=== PATIENT | female | born 1990 | race Two or more races ===

== ENCOUNTER 2021-11-27 13:45 | Outpatient (CLI) | payer BC, SELFPAY ==
--- NOTE | 2021-11-27 14:00 | CRLHL7_ITS ---
For Patients: As a result of the Century Cures Act, medical imaging exams and procedure reports are released immediately into your electronic medical record. You may view this report before your referring provider. If you have questions, please contact your health care provider. INDICATION: First trimester scan, establish dates. COMPARISON: None. TECHNIQUE: Real-time allred-scale imaging of the pelvis was performed. FINDINGS: Sonographic imaging demonstrates a single living intrauterine gestation. The embryo demonstrates a regular cardiac rate measuring 161 beats per minute. The embryo`s crown-rump length measurement of 4.5 cm corresponds to a gestational age of 11 weeks 2 days with a sonographic due date of 06/16/2022. There is a normal-appearing yolk sac. There are no gross abnormalities noted within the embryo at this early state of development. The gestational sac has a normal appearance. There is a 1.6 x 0.4 x 1.0 cm perigestational hemorrhage. The amount of fluid within the sac appears appropriate for gestational age. The cervix is closed. The myometrium appears normal. The ovaries are of normal size. Probable corpus luteal cyst right ovary. There are no suspicious fluid collections noted in the cul-de-sac. IMPRESSION: A single living intrauterine with sonographic gestational age 11 weeks 2 days and sonographic due date of 06/16/2022. Small inferior subchorionic hemorrhage measuring 1.6 x 0.4 x 1.0 cm. Dictated by Ivan Han MD @ 11/27/2021 3:06:37 PM (Electronically Signed)
== END 2021-11-27 13:46 | disposition home or self-care (01) ==
LOC: US 13:46
PROVIDERS: Visit Provider Physician Assistant
DX: Z34.91 Encounter for supervision of normal pregnancy, unspecified, first trimester (principal)
CPT/HCPCS: 76801; 86592; 86703; 86762; 86787; 86803; 86850; 86900; 86901; 87086; 87340; 87491; 87591; 88175

== ENCOUNTER 2022-01-27 15:50 | Outpatient (CLI) | payer BC, SELFPAY ==
--- NOTE | 2022-01-27 16:00 | CRLHL7_ITS ---
For Patients: As a result of the Century Cures Act, medical imaging exams and procedure reports are released immediately into your electronic medical record. You may view this report before your referring provider. If you have questions, please contact your health care provider. INDICATION: Evaluate anatomy. COMPARISON: 11/27/2021 TECHNIQUE: Real time allred scale imaging of the fetus was performed as well as color Doppler analysis of the umbilical vessels. FINDINGS: Sonographic imaging demonstrates a single living intrauterine gestation. Fetus demonstrates a regular cardiac rate of 149 beats per minute. Fetus has a vertex position. The placenta lies posteriorly without evidence of placenta previa. The edge of the placenta is located 5.3 cm from the internal cervical os. Amniotic fluid volume appears normal. Single deepest vertical pocket: 4.5 cm. The cervix is closed and measures 3.6 cm in length. The composite ultrasound gestational age is calculated at 20 weeks 1 day with an estimated sonographic due date of 06/15/2022. The estimated weight is 316 grams which lies at the 36th %. The following biometric measurements were obtained: Biparietal diameter: 4.7 cm/20 weeks 1 day 59th% Head circumference: 17.5 cm/20 weeks 0 days 42nd% Abdominal circumference: 15.0 cm/20 weeks 2 days 53rd% Femur length: 3.0 cm/19 weeks 2 days 18th% The HC/AC ratio measures: 1.17 range (1.07-1.25) On anatomic survey, there is a normal appearance of the cerebral ventricles, cavum septi pellucidi, cisterna magna and cerebellum. The nose, lips, and facial profile appear normal. The cervical, thoracic and lumbar spine are well visualized and appear normal. There is a normal four-chamber heart view and the left and right ventricular outflow tracts appear normal. The diaphragm and stomach appear normal. The kidneys and bladder also appear normal. There is a normal three-vessel cord and cord insertion site. The four extremities appear normal. IMPRESSION: Normal OB ultrasound exam with concordance of clinical and sonographic dating. No intrinsic abnormalities noted on anatomic survey. Dictated by Ivan Han MD @ 01/28/2022 12:46:27 PM (Electronically Signed)
== END 2022-01-27 15:51 | disposition home or self-care (01) ==
LOC: US 15:51
PROVIDERS: Visit Provider Physician Assistant
DX: Z34.92 Encounter for supervision of normal pregnancy, unspecified, second trimester (principal); Z3A.20 20 weeks gestation of pregnancy
CPT/HCPCS: 76805

== ENCOUNTER 2022-03-27 14:16 | Outpatient (CLI) | payer BC, SELFPAY ==
[2022-03-30 00:15] LABS: Rapid Plasma Reagin (RPR) Non Reactive (Non Reactive)
== END 2022-03-27 14:17 | disposition home or self-care (01) ==
LOC: NFLDREF 14:17
PROVIDERS: Visit Provider Obstetrics & Gynecology
DX: Z34.93 Encounter for supervision of normal pregnancy, unspecified, third trimester (principal); Z3A.28 28 weeks gestation of pregnancy
CPT/HCPCS: 86592

== ENCOUNTER 2022-05-20 15:30 | Outpatient (CLI) | payer BC, SELFPAY | END 2022-05-20 15:31 | disposition home or self-care (01) | LOC: NFLDREF 05-22 14:28 | PROVIDERS: Visit Provider Obstetrics & Gynecology | DX: Z34.93 Encounter for supervision of normal pregnancy, unspecified, third trimester (principal); Z3A.36 36 weeks gestation of pregnancy | CPT/HCPCS: 87081; 87653 ==

== ENCOUNTER 2022-06-07 05:06 | Inpatient (IN) | payer BC, SELFPAY ==
[2022-06-07] VITALS (78 sets, daily range): BP systolic 97–197; BP diastolic 50–144; PULSE 79–145; RESP 16–24; TEMP 36.6–39.3; O2SAT 92–100; BMI 34.1
[2022-06-07 04:54] LABS: Amnisure Rom* POSITIVE
[2022-06-07 06:27] LABS: SARS PCR* Negative SARS-CoV-2 (Negative)
[2022-06-07] MEDS: LACTATED RINGERS 1000 ML 1,000 ML 125 ML IV ×2 (08:49→15:39)
[2022-06-07] MEDS: OXYTOCIN 30 unit/500 ML in NS 30 UNIT/500 ML BAG IVPB (08:50)
[2022-06-07 09:02] LABS: Basophils Absolute Auto 0.04 K/uL (0.00-0.30); Basophils Percent Auto 0.5 % (0.0-3.0); Eosinophils Absolute Auto 0.24 K/uL (0.00-0.50); Eosinophils Percent Auto 3.1 % (0.0-7.0); Hematocrit 35.8 % (33.0-51.0); Hemoglobin* 12.2 gm/dL (12.0-16.0); Immature Granulocytes Abs Auto 0.04 K/uL (0.00-0.30); Immature Granulocytes Pct Auto 0.5 %; Lymphocytes Absolute Auto 1.74 K/uL (0.90-2.90); Lymphocytes Percent Auto 22.7 % (20-44); Mean Corpuscular HGB Conc 34 gm/dL (32-36); Mean Corpuscular Hemoglobin 31 pg (26-34); Mean Corpuscular Volume 90 fL (80-100); Monocytes Percent Auto 9.3 % (0.0-11.0); Neutrophils Absolute Auto 4.89 K/uL (1.7-7.0); Neutrophils Percent Auto 63.9 % (42.0-72.0); Platelet Count* 228 K/uL (140-440); RDW Coefficient of Variation % 13.3 % (11.5-15.5); Red Blood Count 3.96 m/uL (4.00-5.20); White Blood Count* 7.66 K/uL (4.50-11.00)
[2022-06-07 09:05] LABS: Slide Review Reflex No
--- NOTE | 2022-06-07 10:54 | W.PM.LDBA ---
Subjective History of Present Illness Date Seen: 06/07/22 Narrative: Patient is being admitted to Labor and Delivery for IOL after SROM. She is a 31 year old at 38 5/7 weeks gestation. Her full history and physical was dictated by Dr. Chilel on 05/27/22. Please see this for details. Patient presented to the unit this morning after episode of watery like discharge, upon evaluation it was not evident rupture of membranes, AmniSure completed and found positive. Patient admitted for IOL. Specific Issues/Plans G1 Andrew 1. H/o brain surgery, age 17.? 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 Vein was removed.? Reports no follow-up needed. 2. Migraines 3. Exercise-induced asthma TDAP: 04/10/22 OB - Problem Based A/P Additional Plan (1) Spontaneous rupture of membranes: Status: Acute Plan 1. IOL after SROM. Offered starting oxytocin and patient agreed. Will continue to monitor labor progress. 2. GBS negative no need for antibiotic prophylaxis. 3. Pain management, candidate for pain management of choice. 4. Continuos monitoring. 5. Expect vaginal delivery. OB Result Labs Labs: AmniSure positive OB Exam Physical Exam Vital signs: Temp Pulse Resp BP 98.8 F 93 20 120/70 06/07/22 10:17 06/07/22 09:10 06/07/22 07:18 06/07/22 09:10 Detailed Labor and Delivery Exam Patient Gravid: Yes Dilation (cm): 2 Effacement (%): 70 Cervix position: mid Consistency: soft Contraction Frequency: Regular Tachysystole: No Contraction intensity: Mild Fetus (Single) Station: -1 Amniotic Membrane Status: SROM Amniotic Membrane Fluid Description: Clear Heart Rate Baseline: 130 Monitor Accelerations: Present Monitor Decelerations: Variable (Sporadic) Custodial Variability: Moderate (6-25)
[2022-06-07] MEDS: fentaNYL 100 MCG/2 ML inj IVP (13:13)
[2022-06-07] MEDS: ROPIVACAINE 0.2% 100 ml 100 ML 10 MG EPIDURAL (15:17)
--- NOTE | 2022-06-07 15:32 | P.ANBPRC_ITS ---
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 Nonsmoker. No alcohol use. No recreational drug use. Smoking Status: Never smoker Little interest or pleasure in doing things: not at all Feeling down, depressed, or hopeless: not at all Meds Home Medications and Allergies Home Medications Medication Instructions Recorded Confirmed Type prenat.vits,karen,mad-phse-depvv 1 tab PO QDAY 02/24/22 06/07/22 History Allergies Allergy/AdvReac Type Severity Reaction Status Date / Time vancomycin Allergy Mild Verified 06/02/22 13:55 Results Labs Labs: Laboratory Results - last 24 hr 06/07/22 06/07/22 06/07/22 04:35 05:32 08:52 WBC 7.66 RBC 3.96 L Hgb 12.2 Hct 35.8 MCV 90 MCH 31 MCHC 34 RDW Coeff of Antonio 13.3 Plt Count 228 Neut % (Auto) 63.9 Lymph % (Auto) 22.7 [place] % (Auto) 9.3 Eos % (Auto) 3.1 Baso % (Auto) 0.5 Neut # (Auto) 4.89 Lymph # (Auto) 1.74 [place] # (Auto) 0.70 Eos # (Auto) 0.24 Baso # (Auto) 0.04 Membrane Rupture POSITIVE SARS-CoV-2 (PCR) Negative SARS-CoV-2 Blood Type O Positive Antibody Screen NEGATIVE Vital Signs Vital Signs: Last Vital Signs Temp 98.1 F 06/07/22 12:55 Pulse 95 06/07/22 15:26 Resp 20 06/07/22 07:18 BP 117/60 06/07/22 15:26 Pulse Ox 100 06/07/22 15:30 Weight: 76.702 kg Height: 149.86 cm Anesthesia Procedures Epidural Insertion Patient Location: OB Start Time: 14:50 Stop Time: 15:50 Start Date: 06/07/22 Stop Date: 06/07/22 Reason for Block: procedure for pain Patient Position: sitting Performed By: Yunior Montoya Preanesthetic Checklist: IV checked, risks and benefits discussed, surgical consent, monitors and equipment checked, pre-op evaluation, timeout performed and anesthesia consent Prep: chlorhexidine gluconate Monitoring: blood pressure monitoring, continuous pulse oximetry and heart rate Approach: midline Vertebral Space: lumbar (1-5) Epidural Technique: TONIA saline Needle Type: Tuohy needle Injection Technique: continuous catheter Needle gauge: 17 Needle Length (cm): 10 cm Needle Insertion Depth (cm): 6 Catheter Gauge: 19 Catheter Type: multi-orifice Catheter at skin depth (cm): 12 Test Dose Result: negative and lidocaine 1.5% with epinephrine 1 to 200,000
--- NOTE | 2022-06-07 19:19 | PM.OBPNL ---
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 Labor Progress: Adequate Plan Plan: Continue current management, start pushing.
[2022-06-07] MEDS: ACETAMINOPHEN 500 MG TABLET 1000 MG PO (21:07)
[2022-06-07] MEDS: AMPICILLIN 2 GM in 0.9 % SODIUM CHLORIDE Mini-bag 100 ML IVPB (21:13)
[2022-06-07] MEDS: TRANEXAMIC ACID 100 MG/ML INJ 1000 MG IV (21:33)
[2022-06-07] MEDS: CARBOPROST TROMETHAMINE 250 MCG/ML INJ IM (21:33)
[2022-06-07] MEDS: miSOPROStoL 800 MCG/4 TABLET PR (21:42)
--- NOTE | 2022-06-07 22:09 | W.PM.OBVAGDE ---
OB Procedure Vag Delivery Mother Details Mother Details: The patient is a 31 year-old, 1, Para 0, admitted on 06/07/22 at 38 5/7 Days gestation for IOL after SROM. : 1 Para: 1 Weeks Gestation: 38.5 Admission Date: 06/07/22 Additional Details Amniotic Membrane Status: SROM Amniotic Membrane Rupture Date: 06/07/22 Amniotic Membrane Rupture Time: 03:00 Amniotic Membrane Fluid Description: Clear Analgesia/Anesthesia Type: Epidural Waterbirth: No Pitcoin: Yes Intrapartal Events: Febrile (>100F) (Chorioamnionitis, diagnosed at second stage of labor due to persistent elevated temperature. Treated intrapartum with tylenol and IV antibiotics started right away (Ampicillin and Gentamicin).) Induction Method: per pitocin protocol Delivery augmentation: pitocin Labor Onset: 17:00 Complete: 19:05 Pushin:21 Heart: heart tones during second stage were category 2. Delivery Details Delivery Date: 06/07/22 Delivery Time: 21:21 Route of delivery: Gender: Male Infant Viability: Alive; Heart Rate Present Position at Delivery: OA Delivery Details: Delivered over intact perineum via spontaneous vaginal delivery. was placed on maternal abdomen.? Cord was clamped and cut after a 30-60 second delay. Nose and mouth were bulb suctioned.? weight pending. 1 Minute Interval Total Score: 8 5 Minute Interval Total Score: 9 Additional Details Shoulder Dystocia: No Placenta Delivery Time: 21:26 Placental Delivery Description: Spontaneous Delivery repair: Vicryl Procedure Done: Global Blood Loss: 729 Laceration: Perineal - 2nd Degree Blood Loss Measurement Type: QBL Bakri Used: No Sponge/Need Count Correct: Yes Cord Vessel Description: 3 Vessels and Nuchal Cord Event Summary Status: Uterine atony treated with IV Oxytocin, 800mcg of rectal misoprostol, 1 dose of Hemabate and 1g of TXA. Mother and infant were stable after delivery. Will continue antibiotic therapy until 24 hours afebrile. Disposition: floor
[2022-06-07 22:53] LABS: Hematocrit 32.1 % (33.0-51.0); Hemoglobin* 11.1 gm/dL (12.0-16.0); Mean Corpuscular HGB Conc 35 gm/dL (32-36); Mean Corpuscular Hemoglobin 31 pg (26-34); Mean Corpuscular Volume 90 fL (80-100); Platelet Count* 206 K/uL (140-440); Red Blood Count 3.57 m/uL (4.00-5.20); White Blood Count* 15.24 K/uL (4.50-11.00)
[2022-06-07 23:00] LABS: Slide Review Reflex No
[2022-06-07 23:08] LABS: Alanine Aminotransferase* 17 U/L (4-35); Aspartate Amino Transferase* 22 U/L (12-35); Blood Urea Nitrogen* 6 mg/dL (5-24); Creatinine* 0.6 mg/dL (0.5-1.5); Est. Creatinine Clearance* 166.01; Estimated Glomerular Filt Rate 124 ml/min
[2022-06-07 23:27] LABS: INR 0.96 (0.91-1.10); Prothrombin Time 13.4 Seconds
[2022-06-07 23:29] LABS: Fibrinogen* 493 mg/dL (200-450); Partial Thromboplastin Time* 31 Seconds (23-33)
[2022-06-07] MEDS: IBUPROFEN 600 MG TABLET PO (23:33)
[2022-06-08 00:52] VITALS: BP 117/76; PULSE 96; RESP 16; TEMP 36.8; O2SAT 100
[2022-06-08] MEDS: AMPICILLIN 2 GM in 0.9 % SODIUM CHLORIDE Mini-bag 100 ML IVPB (03:11)
[2022-06-08 04:59] VITALS: BP 99/67; PULSE 71; RESP 16; TEMP 36.6; O2SAT 98
[2022-06-08] MEDS: diphenhydrAMINE 50 MG/ML inj 25 MG IVP ×2 (05:59→13:46)
[2022-06-08 06:26] LABS: Hemoglobin* 11.1 gm/dL (12.0-16.0)
[2022-06-08] MEDS: IBUPROFEN 600 MG TABLET PO ×3 (08:00→20:57)
--- NOTE | 2022-06-08 08:05 | P.OBPN_ITS ---
OB - PN:Subj Subjective Time Seen by Provider: 08:05 Date Seen: 06/08/22 Interval history: Helen is a 31 y.o. who was admitted to L & D for SROM. She had an NVD that was complicated by gestational hypertension, PP bleeding (blood loss does not meet criteria for hemorrhage) and chorio. She received at least 2 doses of ampicillin and gentamycin last night, after which she was noted to have a reaction to one of them. Swelling, hives and rash per pt. Antibiotics dc'd at that time and Benadryl given. Patient comments OB post-: no complaints, pain well controlled, tolerating diet and flatus present [place] infant status: doing well and other (Being treated with antibiotics) Narrative: The patient feels well. The pain is well controlled with current medications. She has no new complaints. She is feeing somewhat better since receiving the benadryl for the antibiotic reaction. She is breast feeding and reports things are going well.? the patient has done well.? Vitals have been stable.? She has remained afebrile since shortly after delivery.? Has a good appetite, is tolerating a general diet. She is voiding without difficulty.? She is passing gas and has had a bowel movement - diarrhea, likely r/t medication given PP.? She is ambulating and denies any dizziness.? Has Small amount of rubra lochia. OB - PN: Obj Exam Physical Exam: Vital signs: Temp Pulse Resp BP Pulse Ox O2 Del Method 97.8 F 71 16 99/67 98 Room Air 06/08/22 04:59 06/08/22 04:59 06/08/22 04:59 06/08/22 04:59 06/08/22 04:59 06/08/22 04:59 Narrative: GENERAL APPEARANCE: normal affect, alert, no distress MOOD: appropriate HEENT: normocephalic, neck supple, full ROM CHEST: Symmetrical chest wall movement. Normal respiratory effort. Clear to auscultation HEART: regular rate and rhythm ABDOMEN: soft, non-tender. Uterine fundus is firm, at Umbilicus, Midline and is appropriate for the stage of recovery. Bowel sounds present. PERINEUM: Moderate edema of the perineum, there is a 2nd degree laceration that is healing well. EXTREMITIES: normal and +1 edema. Mild rash noted on arms. OB - PN: Obj Data Labs Labs: Laboratory Results - last 24 hr 06/07/22 06/07/22 06/08/22 08:52 22:35 06:18 WBC 7.66 15.24 H RBC 3.96 L 3.57 L Hgb 12.2 11.1 L 11.1 L Hct 35.8 32.1 L MCV 90 90 MCH 31 31 MCHC 34 35 RDW Coeff of Antonio 13.3 Plt Count 228 206 Neut % (Auto) 63.9 Lymph % (Auto) 22.7 [place] % (Auto) 9.3 Eos % (Auto) 3.1 Baso % (Auto) 0.5 Neut # (Auto) 4.89 Lymph # (Auto) 1.74 [place] # (Auto) 0.70 Eos # (Auto) 0.24 Baso # (Auto) 0.04 INR 0.96 APTT 31 Fibrinogen 493 H BUN 6 Creatinine 0.6 Estimated Creat Clear 166.01 Estimated GFR 124 AST 22 ALT 17 Blood Type O Positive Antibody Screen NEGATIVE OB - PN: A/P Vaginal Delivery Assessment and Plan (1) Spontaneous rupture of membranes: Status: Acute Plan Plan: routine care Comments: G 1 P 1 status post NVD Gestational hypertension Increased PP blood loss, does not meet criteria for hemorrhage Chorioamnionitis, reaction to antibiotics 1. Continue route PP cares 2. . May see if desired 3. Anticipate discharge home tomorrow 4. BPs stable since delivery. Will continue to monitor 5. Has benadryl ordered if she needs another dose. Consulted Dr. Lito South. Decision made to hold all antibiotics at this time and monitor temp. Will give more antibiotics if fever returns.
[2022-06-08 08:14] VITALS: BP 111/71; PULSE 87; RESP 16; TEMP 36.9; O2SAT 99
[2022-06-08 12:00] VITALS: BP 93/58; PULSE 81; RESP 16; TEMP 36.7; O2SAT 97
[2022-06-08 16:00] VITALS: BP 106/68; PULSE 81; RESP 16; TEMP 36.9; O2SAT 97
[2022-06-08 19:45] VITALS: BP 122/76; PULSE 87; RESP 18; TEMP 36.6; O2SAT 97
[2022-06-08] MEDS: ACETAMINOPHEN 500 MG TABLET 1000 MG PO (22:14)
[2022-06-09] MEDS: IBUPROFEN 600 MG TABLET PO ×2 (02:53→14:21)
[2022-06-09] MEDS: ACETAMINOPHEN 500 MG TABLET 1000 MG PO (04:44)
[2022-06-09 05:13] VITALS: BP 101/63; PULSE 72; RESP 18; TEMP 36.6; O2SAT 97
[2022-06-09 08:15] VITALS: BP 117/72; PULSE 74; RESP 18; TEMP 36.4; O2SAT 96
--- NOTE | 2022-06-09 08:17 | P.DS_ITS ---
DS: Providers Provider Date Seen: 06/09/22 Date of admission: 06/07/22 05:06 Primary care physician: Not a Local Provider Admitting Clinician: Sara Caro MD Attending Physician on discharge: Chelle Jordan CNM DS: Diagnosis Discharge Diagnosis (1) care and examination immediately after delivery: Status: Acute (2) Lactating mother: Status: Acute (3) Gestational hypertension: Status: Acute (4) Chorioamnionitis, delivered, current hospitalization: Status: Acute Exam Narrative: Exam Narrative: GENERAL APPEARANCE:? normal affect, alert, no distress MOOD:? appropriate CHEST:? clear to auscultation HEART:? regular rate and rhythm ABDOMEN:? soft, non-tender the uterine fundus is At Umbilicus, Midline and is appropriate for the stage of recovery. PERINEUM:? mild edema of the perineum, there is a Perineal Laceration,?2nd degree, that is healing well. EXTREMITIES:? normal and trace edema Const: Vital Signs, click to edit/add: Vital Signs - 24 hr 06/08/22 12:00 06/08/22 16:00 06/08/22 19:45 Temperature 98.0 F 98.5 F 98 F Pulse Rate [Pulse Oximeter] 81 81 87 Respiratory Rate 16 16 18 Blood Pressure [Ri ght Arm] 93/58 L 106/68 122/76 Pulse Oximetry 97 97 97 Oxygen Delivery Me thod Room Air Room Air Room Air 06/09/22 05:13 Temperature 97.8 F Pulse Rate [Pulse Oximeter] 72 Respiratory Rate 18 Blood Pressure [Ri ght Arm] 101/63 Pulse Oximetry 97 Oxygen Delivery Me thod Room Air OB - DS: Summary Hospital Course Hospital Course: Helen is a 31 y.o. at 38 5/7 weeks gestation who was admitted to L & D for PROM. ?She had an NVD complicated by chorioamnionitis and gestational hypertension.?The patient feels well. ?The pain is well controlled with current medications. ?She has no new complaints. ?She is breast feeding and reports things are going ok but baby has been sleepy.? the patient has done well.? Vitals have been stable.? She has remained afebrile for the last 24 hours, and since stopping antiobitics yesterday.? Has a good appetite, is tolerating a general diet. ?She is voiding without difficulty.? She is not yet passing gas and has not had a bowel movement.? She is ambulating and denies any dizziness.? Has small amount of rubra lochia. ?She is undecided about control for prevention. Gender: Male Time Spent with Patient Time attestation: Total time spent providing and/or coordinating discharge services: Discharge Plan Discharge Disposition: Home, Self-Care Date of Admission: 06/07/22 05:06 Primary Care Provider: Provider,Not a Local Condition: Stable Anticipated Discharge Date/Time: 06/09/22 12:00 Discharge Medications: New acetaminophen 500 mg Tablet 1,000 mg PO Q6H PRNQty: 0 0RF docusate sodium 100 mg Capsule 100 mg PO DAILY Qty: 90 0RF ibuprofen 600 mg Tablet 600 mg PO Q6H PRNQty: 60 0RF Continued prenat.vits,karen,fvs-sdne-ufxuf Tablet 1 tab PO QDAY Discharge Orders: Discharge Order (Routine); Ordered 06/09/22 Ordered By: Chelle Jordan Patient Education: OB Over the Counter Medication Information, OB Vaginal/Breast Feeding Additional Instructions: Discharge instructions were reviewed with the patient including signs and symptoms of infection and home going medications Nothing vaginally for 6 weeks: no tampons or intercourse Off Work or School for 6 weeks Follow Up [facility] for a BP check?in 3-5 days Call with BP greater than or equal to 160/110 2-week visit: discuss infant feeding concerns, review control options and screen for anxiety/depression. 6-week visit for an annual exam. consultation services are available to all mothers and babies for the first year after delivery.? To make an appointment, please call [phone]. Activity Level: Activity as Tolerated Discharge Diet: Regular Follow Up Appointments: [facility] [Provider Group] Forms: [employer] Info Instructions Plan Plan Goals to Achieve Outcome: Assessment G 1 P 1 status post NVD Gestational hypertension Increased PP blood loss, does not meet criteria for hemorrhage Chorioamnionitis, reaction to antibiotics Plan 1. Continue route PP cares 2. . May see if desired 3. BPs stable since delivery. Will continue to monitor 4. Continue to monitor temperature. Has been afebrile since discontinuation of antibiotics. 5. Discharge today
--- NOTE | 2022-06-10 15:40 | PC.NURSE ---
Pt reports that she did not receive a blood pressure cuff and had htn dx. RN reported to Bob Anne CNM. Bob Anne CNM recommended patient have bp cuff . Pt reporting that she is concerned of insurance coverage. RN gave patient free BP cuff provided by [facility] [place] [facility]. RN reviewed bp education and how to take a BP with home bp unit. PT verbalized understanding.
== END 2022-06-09 14:45 | disposition home or self-care (01) | DRG 560 ==
LOC: OB OUT 05:06 → OB 05:06
PROVIDERS: Admitting Provider Obstetrics & Gynecology; Visit Provider Obstetrics & Gynecology
DX: O13.4 Gestational [pregnancy-induced] hypertension without significant proteinuria, complicating childbirth (principal); O41.1230 Chorioamnionitis, third trimester, not applicable or unspecified; O70.1 Second degree perineal laceration during delivery; L50.0 Allergic urticaria; T36.0X5A Adverse effect of penicillins, initial encounter; T36.5X5A Adverse effect of aminoglycosides, initial encounter; Y92.230 Patient room in hospital as the place of occurrence of the external cause; O62.2 Other uterine inertia; Z3A.38 38 weeks gestation of pregnancy; Z37.0 Single live birth
CPT/HCPCS: 01967; 36415; 76815; 82565; 84112; 84450; 84460; 84520; 85018; 85025; 85027; 85384; 85610; 85730; 86850; 86900; 86901; 87635; 88307; A9270; J0290; J1200; J1580; J2370; J2795; J3010; J7120; S0020

== ENCOUNTER 2024-02-07 13:25 | Day surgery (SDC) | payer OTHER, SELFPAY ==
[2024-02-07] VITALS (19 sets, daily range): BP systolic 89–127; BP diastolic 53–83; PULSE 53–97; RESP 14–18; TEMP 36–36.7; O2SAT 89–100; BMI 29.7
--- NOTE | 2024-02-07 14:18 | ED.GENADULT ---
HPI - General Adult General Date Seen: 02/16/24 Chief complaint: Abdominal Pain Stated complaint: Abdominal pain Time Seen by Provider: 02/07/24 13:57 Source: patient Mode of arrival: ambulatory Limitations: no limitations History of Present Illness HPI narrative: Patient is a 33-year-old woman seen here after being seen at [facility] in [place]. I spoke with the provider there who were sending her here for appendicitis found on CT scan. Patient tells me that she noted abdominal pain which she got up this morning, she says her toddler kind of crawled on her belly and she noted that she had pretty significant pain in the right abdomen. She has had anorexia and some nausea today. No vomiting, no diarrhea. No fevers. She was noted to have an ovoid density in the gallbladder on CT with recommended 1 month follow-up ultrasound to look for a polyp. She is aware of this, does not have primary care so will need to get that set up. She last ate yesterday, did have water this morning up through 11:15 this morning. Denies urinary symptoms. Related Data Previous Rx's ?Medication ?Instructions ?Recorded hydrocodone 5 mg-acetaminophen 325 1 - 2 tab PO Q6H PRN Pain #12 tabs 02/07/24 mg tablet Allergies Allergy/AdvReac Type Severity Reaction Status Date / Time gentamicin Allergy Intermediate Rash Verified 02/07/24 13:58 vancomycin Allergy Mild Verified 02/07/24 13:58 Review of Systems Status of ROS: Reports: 6 or more systems reviewed and unremarkable except as noted in History and below [facility] Medical History Migraine ?G43.909 - Migraine, unspecified, not intractable, without status migrainosus (ICD-10) Exercise-induced asthma ?J45.990 - Exercise induced bronchospasm (ICD-10) Surgical History History of surgery on lower extremity ?Z98.890 - Other specified postprocedural states (ICD-10) History of brain surgery ?Z98.890 - Other specified postprocedural states (ICD-10) 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 No alcohol use. No recreational drug use. Smoking Status: Never smoker How often do you have a drink containing alcohol: never AUDIT-C Alcohol total score: 0 Non-prescribed substance use: denies use Exam Narrative: Exam Narrative: Vital signs reviewed In general, alert, nontoxic young woman. Looks comfortable. Head: Normocephalic, atraumatic. Eyes: Sclera clear. Pupils equal and reactive. ENT: Mucous membranes moist. Neck: Supple without adenopathy. Heart: Regular rate and rhythm without murmur. Lungs: Clear. No increased work of breathing, crackles or wheezes. Abdomen: Soft, nondistended. Some right mid and lower abdominal tenderness including McBurney's point. No rebound guarding or rigidity. Extremities: Well perfused, pulses intact. No significant edema. Neurologic: Alert, conversant. Speech fluent, face symmetric. Moves all extremities equally. Skin: Warm, dry well perfused. Affect: Normal. Const: Vital Signs, click to edit/add: Vital Signs - 24 hr 02/07/24 13:51 02/07/24 16:20 02/07/24 16:26 Temperature 98.1 F 97.0 F L Pulse Rate 59 L 64 Pulse Rate [Pulse Oximeter] 89 Respiratory Rate 16 17 18 Blood Pressure 103/62 103/62 Blood Pressure [Le ft Upper Arm] 127/83 Pulse Oximetry 92 97 93 Oxygen Delivery Me thod Room Air Room Air Room Air Documenting provider has reviewed patient's vital signs: yes Course Course ED Course: Outside records were reviewed, labs were not sent. CT report was reviewed however. I have consulted general surgery. General surgery recommends admission to the OR for appendectomy. IV was already in place, they reviewed her CT as well. Patient sent to the OR in stable condition. Patient is already aware but I have reiterated to her that she will need to establish with primary care to make sure that the gallbladder finding is followed up with ultrasound. Vital Signs Vital signs: Initial Vital Signs Temperature 98.1 F 02/07/24 13:51 Temperature Source Temporal Artery Scan 02/07/24 13:51 Pulse Rate 89 02/07/24 13:51 Respiratory Rate 16 02/07/24 13:51 Blood Pressure 127/83 02/07/24 13:51 Blood Pressure Mean 97 02/07/24 13:51 Blood Pressure Position Standing 02/07/24 13:51 Pulse Oximetry 92 02/07/24 13:51 Oxygen Delivery Method Room Air 02/07/24 13:51 Vital Signs Temperature 98.1 F 02/07/24 13:51 Pulse Rate 89 02/07/24 13:51 Respiratory Rate 16 02/07/24 13:51 Blood Pressure 127/83 02/07/24 13:51 Pulse Oximetry 92 02/07/24 13:51 Oxygen Delivery Method Room Air 02/07/24 13:51 Temperature 97.0 F L 02/07/24 16:20 Pulse Rate 64 02/07/24 16:26 Respiratory Rate 18 02/07/24 16:26 Blood Pressure 103/62 02/07/24 16:26 Pulse Oximetry 93 02/07/24 16:26 Oxygen Delivery Method Room Air 02/07/24 16:26 Medications Administered Medications: Generic Name Dose Route Start Last Admin Trade Name Freq PRN Reason Stop Dose Admin Lactated Ringer's 1,000 mls @ 100 mls/hr 02/07/24 14:45 02/07/24 15:15 Lactated Ringers 1000 Ml IV 100 mls/hr .Q10H PETTY Administration Discontinued Medications Generic Name Dose Route Start Last Admin Trade Name Freq PRN Reason Stop Dose Admin Bupivacaine HCl 30 ml 02/07/24 15:51 02/07/24 15:51 Bupivacaine 0.25% 30 Ml INJECTION 02/07/24 15:52 20 ml ONCE ONE Administration Ertapenem 1 gm 02/07/24 15:16 02/07/24 15:30 Ertapenem 1 Gm Inj IVPB 02/07/24 15:17 1 gm ONCE ONE Administration Discharge Plan Discharge Clinical Impression: Acute appendicitis Activity Level: Activity as Tolerated and No strenuous activity Activity Detail: No lifting more than 20 lb for 2 weeks after surgery. Discharge Diet: Regular
--- NOTE | 2024-02-07 14:34 | P.GSHP_ITS ---
History of Present Illness History of Present Illness Date Seen: 02/07/24 Chief complaint: Abdominal pain Narrative: Helen Mcclelland is a 33 year old female who presented to an outside urgent care earlier today with abdominal pain. She states that the pain started above her umbilicus and then migrated to her lower abdomen. She states that this occurred very early in the morning. She had nausea with this and anorexia which is unusual for her. She last ate last evening. She states that she has pain across her left and right lower abdomen. And she has not had any indigestion. She states that she has had loose stool in pain with walking and driving when she goes over a bump. In the outside urgent care workup revealed a mildly elevated white blood cell count. She had a CT scan which showed acute appendicitis. She was referred here for appendectomy. She states that she had a sip of water at 11:00 a.m. when she found out that she had appendicitis, she stops eating and drinking. 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 No alcohol use. No recreational drug use. Smoking Status: Never smoker Meds Home Medications and Allergies Allergies Allergy/AdvReac Type Severity Reaction Status Date / Time gentamicin Allergy Intermediate Rash Verified 02/07/24 13:58 vancomycin Allergy Mild Verified 02/07/24 13:58 Exam Narrative: Exam Narrative: General appearance: Alert, cooperative, and in no distress Eyes: PERRLA, eye lids clear, and sclera white HENT Head: Normocephalic Ears: External ears normal Pulmonary: Clear to auscultation bilaterally Cardiovascular Heart: Regular rate and rhythm Extremities: warm and well perfused Gastrointestinal Abdominal: No scars. Patient is mildly tender in the right lower quadrant. When palpating the left lower quadrant she also has discomfort in the left and right lower quadrant. Very minimal rebound on the right. Musculoskeletal: Extremities: Upper: Both upper extremities have normal joint range of motion and intact strength. Lower: Both lower extremities have normal joint range of motion and intact strength. Skin: Normal skin color, texture, and turgor. Neurologic: No focal deficits Psychiatric: Alert, oriented, cooperative, normal affect. Const: Vital Signs, click to edit/add: Vital Signs - 24 hr 02/07/24 13:51 Temperature 98.1 F Pulse Rate [Pulse Oximeter] 89 Respiratory Rate 16 Blood Pressure [Le ft Upper Arm] 127/83 Pulse Oximetry 92 Oxygen Delivery Me thod Room Air Results Results Labs: Labs from outside hospital reviewed. The patient has a white blood cell count of 11.4 with a left shift. Hemoglobin is normal. Electrolytes and LFTs were within normal limits. Abdomen CT scan report/results: report reviewed and image reviewed Additional studies: CT Scan of the abdomen and pelvis done at [facility]: 1. Acute uncomplicated appendicitis 2. 1.3 x 0.8 cm ovoid density in the anti dependent portion of the gallbladder. A right upper quadrant ultrasound is recommended within 1 month to exclude gallbladder polyp. 3. Hepatic steatosis. Progress Note:A&P Assessment and plan (1) Acute appendicitis: Status: Acute (2) Abnormal CT scan, gallbladder: Status: Acute Plan The patient is a 33-year-old female with acute appendicitis. We discussed that appendectomy is the preferred treatment for this. This can most often be done laparoscopically. We discussed risks and benefits of the procedure including but not limited to bleeding, need for conversion to open, risk of injury to other structures, need for possible bowel resection, and abscess formation. The patient understands that the risk of abscess is higher if the appendix is perforated. For that reason, we generally keep patient is in the hospital on IV antibiotics until vital signs and white blood cell count had normalized. We also discussed recovery including 2 weeks of lifting restrictions. We will plan on surgery urgently this afternoon. She agreed to proceed and signed informed consent. She was also informed of the findings a possible polyp or sludge in her gallbladder. She will follow up as an outpatient for this.
--- NOTE | 2024-02-07 15:12 | PM.GSPRC ---
Operative Note Date of procedure: 02/07/24 Pre-op diagnosis: Acute appendicitis Post-op diagnosis: Same Type of Procedure: Laparoscopic appendectomy Indications: The patient is a 31-year-old female who presented to an outside facility with abdominal pain. Workup revealed acute appendicitis. She then presented to our facility for appendectomy. Procedure Description: After discussing the risks and benefits of the procedure, the patient signed informed consent.? The operative site was marked and the patient was brought to the operating room and placed on the operating table in supine position.? Care was taken to pad the patient's pressure points.?? The patient was then intubated by anesthesia.?? The operative site was then prepped and draped in the usual sterile fashion.? A time-out was then performed. Entrance to the abdomen was obtained via a 5 mm optical trocar in the left upper quadrant. The abdomen was insufflated and briefly surveyed for any signs of injury. There were none. A 12 mm port was placed inferior to the umbilicus as well as a 5 mm port in the left lower quadrant. Both were done under direct vision. The patient was then placed in Trendelenburg position with the right side up. The small bowel was gently moved out of the way and the appendix was in view. The appendix was noted to be dilated and injected. A mesenteric window was created between the base of the appendix and the mesoappendix. An Endo-ASHLEIGH purple load stapler was then used to transect the appendix at its base. A small bleeding vessel at the edge of the staple line was clipped for hemostasis. A vascular load stapler was then used to divide the mesoappendix. The staple lines were inspected for bleeding. There was none. The appendix was then removed from the abdomen using an Endo-Catch bag. The specimen was sent to pathology. The 12 mm port site fascia was closed with 0 Vicryl using a Les-Ajit device. The abdomen was desufflated and the remaining ports removed. The skin was then closed with absorbable subcuticular suture. Sterile dressings were then applied. Instrument sponge and needle counts were correct at the end of the case. The patient was then woken and transported to the PACU in stable condition. ? The patient tolerated the procedure well. Findings: Acute non perforated appendicitis Anesthesia: GETA Surgeon: Raven Godoy MD Estimated blood loss (mL): 5 Specimen: Appendix Condition: stable Disposition: PACU
[2024-02-07] MEDS: LACTATED RINGERS 1000 ML 1,000 ML 100 ML IV (15:15)
[2024-02-07] MEDS: ERTAPENEM 1 GM inj IVPB (15:30)
[2024-02-07] MEDS: BUPIVACAINE 0.25% 30 ML INJECTION (15:51)
--- NOTE | 2024-02-07 16:27 | P.ANES_ITS ---
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
[2024-02-07] MEDS: fentaNYL 100 MCG/2 ML inj 50 MCG IVP (16:34)
--- NOTE | 2024-02-07 16:51 | SUR.PHASEI ---
Patient arrived to PACU with oral airway in and sleepy. Was able to remove the oral airway within first 5 minutes. Patient initially comfortable. Then stated pain in umbilicus area was a 9 out of 10 with no facial grimace or moaning. When asked if she wanted pain medication for pain. She stated yes. Medication given.
--- NOTE | 2024-02-07 16:53 | SUR.PHASEI ---
Pain medication effective, patient stated pain was less and then went back to sleep. Oxygen 3l/min nasal cannula applied due to oxygen saturation dropped to 89%.
--- NOTE | 2024-02-07 16:58 | SUR.PHASEI ---
Patient more awake, oxygen off with saturation level at 100%. Still a little uncomfortable. Feeling tired
[2024-02-07] MEDS: HYDROCODONE-ACETAMIN 5-325 MG 1 TAB PO (17:59)
[2024-02-07] MEDS: ONDANSETRON 2 MG/ML inj 4 MG IVP (19:54)
--- NOTE | 2024-02-07 22:22 | PC.NURSE ---
Shift Note: Pt experiencing pain control issues on return from PACU. Advanced to clear liquids without difficulty and PO [place] given. 3 lap sites well approximated with steri-strips and scant bloody drainage. Active ice applied to lap sites. Pt verbalized mild nausea and was given zofran IVP. VS WNL and LS COA, afebrile. Able to ambulate with SBA to the BR and void x2. Spouse went to sweet pickled fruit maker pain med prescription from patient's preferred pharmacy only to find that the pharmacy had closed 2 hours early due to staffing shortage. Dr. Zarate called and updated, order obtained for 4 tabs [place] through [facility] to bridge patient to tomorrow when her pharmacy reopens and she can sweet pickled fruit maker her prescription. She was discharged to home via wheelchair in the care of her at 2209. Patient and her verbalized understanding of discharged instructions and follow up appointments.
== END 2024-02-07 22:09 | disposition home or self-care (01) ==
LOC: ED 14:40 → OR 15:12 → MEDSURG 16:52
PROVIDERS: Emergency Provider Emergency Medicine; Visit Provider Surgery
PROC: 0DTJ4ZZ Resection of Appendix, Percutaneous Endoscopic Approach (ICD-10-PCS; CPT 44970; principal; 2024-02-07 15:00)
DX: K35.80 Unspecified acute appendicitis (principal); K76.0 Fatty (change of) liver, not elsewhere classified; J45.990 Exercise induced bronchospasm; R93.2 Abnormal findings on diagnostic imaging of liver and biliary tract
CPT/HCPCS: 44970; 00840; 88304; 99140; 99284; 99285; A9270; J0330; J0665; J1100; J1335; J1885; J2250; J2405; J2704; J2710; J3010; J7120